=== PATIENT | female | born 1990 | race Two or more races ===

== ENCOUNTER 2023-05-17 00:47 | Inpatient (IN) ==
[2023-05-17 01:22] LABS: BILIRUBIN,URINE NEGATIVE (NEGATIVE); BLOOD/HEMOGLOBIN,URINE 5+ (NEGATIVE); GLUCOSE, URINE NEGATIVE (NEGATIVE); KETONES,URINE NEGATIVE (NEGATIVE); LEUKOCYTE ESTERASE ,URINE 3+ (NEGATIVE); NITRITES,URINE NEGATIVE (NEGATIVE); PROTEIN,URINE 2+ (NEGATIVE); UROBILINOGEN,URINE NORMAL (NORMAL)
[2023-05-17 01:34] LABS: APPEARANCE,URINE MUCOID (CLEAR); COLOR,URINE STRAW (YELLOW)
[2023-05-17 01:35] LABS: BACTERIA,URINE TRACE /HPF (NEGATIVE); SQUAMOUS EPITHELIAL CELL,UR MODERATE /HPF (NEGATIVE); TRANSITIONAL EPI CELLS,URINE FEW /HPF (NEGATIVE)
[2023-05-17 01:36] LABS: AMNISURE ROM TEST THERE IS A RUPTURE (NO RUPTURE)
[2023-05-17] MEDS ORDERED: NS 1,000 ML IV 1,000 ML ONE (01:46)
[2023-05-17] MEDS: NS 1,000 ML IV 1,000 ML IV ONE (01:50)
[2023-05-17 02:12] LABS: BASOPHILS # (AUTO) 0.1 X10^3/uL (0.0-0.1); BASOPHILS % (AUTO) 0.8 % (0.2-1.0); EOSINOPHILS % (AUTO) 0.4 % (0.9-2.9); HEMATOCRIT 34.6 % (36.0-47.0); HEMOGLOBIN 11.8 g/dL (12.0-16.0); LYMPHOCYTES # (AUTO) 2.1 X10^3/uL (1.3-2.9); LYMPHOCYTES % (AUTO) 23.4 % (21.0-51.0); MEAN CORPUSCULAR HEMOGLOBIN 29.7 pg (27.0-34.0); MEAN CORPUSCULAR HGB CONC 34.1 g/dL (33.0-35.0); MEAN CORPUSCULAR VOLUME 87.1 fL (80.0-100.0); MEAN PLATELET VOLUME 10.1 fL (7.4-11.0); MONOCYTES # (AUTO) 0.6 x10^3/uL (0.3-0.8); MONOCYTES % (AUTO) 6.6 % (0.0-13.0); NEUTROPHILS # (AUTO) 6.3 x10^3/uL (2.2-4.8); NEUTROPHILS % (AUTO) 68.8 % (42.0-75.0); PLATELET COUNT 190 X10^3/uL (150.0-450.0); RED BLOOD COUNT 3.97 X10^6/uL (3.5-5.4); RED CELL DISTRIBUTION WIDTH 13.8 % (11.6-16.5); WHITE BLOOD COUNT 9.1 X10^3/uL (3.6-10.0)
[2023-05-17 02:25] LABS: ALANINE AMINOTRANSFERASE 21 Units/L (12-78); ALKALINE PHOSPHATASE 252 Units/L (46-116); ASPARTATE AMINO TRANSFERASE 26 Units/L (15-37); BLOOD UREA NITROGEN 4 mg/dL (7-18); CALCIUM 7.9 mg/dL (8.5-10.1); CARBON DIOXIDE 21.9 mmol/L (21-32); CHLORIDE 108 mmol/L (98-107); COR CA(FOR HYPOALB) 9.5 mg/dL (8.5-10.1); CREATININE 0.41 mg/dL (0.55-1.02); GLUCOSE 95 mg/dL (65-99); POTASSIUM 3.5 mmol/L (3.5-5.1); SODIUM 140 mmol/L (136-145); TOTAL PROTEIN 6.3 g/dL (6.4-8.2); eGFR NON BLACK RACES > 60 (>60)
[2023-05-17] MEDS ORDERED: NUBAIN INJ 200 MG VIAL MULTIDOSE ONE (03:20)
[2023-05-17] MEDS ORDERED: NS 100 ML IV 100 ML ONE (03:20)
[2023-05-17] MEDS: AMPICILLIN VIAL 2 GRAM ONE (03:22)
[2023-05-17] MEDS: NUBAIN INJ 20 MG AMP IVP PRN (03:24)
[2023-05-17] MEDS ORDERED: REGLAN INJ 10 MG VIAL IVP PRN (03:27)
[2023-05-17] MEDS ORDERED: ZOFRAN INJ 4 MG VIAL IVP PRN (03:27)
[2023-05-17] MEDS ORDERED: AMPICILLIN VIAL 2 GRAM 2 G in NS 100 ML IV + SPIKE MINIBAG* 100 ML IV SCH (04:00)
[2023-05-17] MEDS ORDERED: LR 1,000 ML IV 1,000 ML IV SCH (04:00)
[2023-05-17] MEDS ORDERED: PITOCIN ONE (04:22)
[2023-05-17] MEDS: OXYTOCIN 20 UNIT/1,000 ML-NS 20 UNIT/1,000 ML PLAST..BAG IV PRN (04:25)
[2023-05-17] MEDS ORDERED: BETADINE SOLN ONE (04:29)
[2023-05-17] MEDS: PITOCIN IVP ONE (05:30)
[2023-05-17] MEDS ORDERED: DERMOPLAST PAIN RELIEF SPRAY TOP PRN (06:05)
[2023-05-17] MEDS ORDERED: MILK OF MAGNESIA PO PRN (06:05)
[2023-05-17] MEDS ORDERED: MOTRIN TAB 800 MG PO PRN ×2 (06:05→06:08)
[2023-05-17] MEDS ORDERED: AMBIEN PO PRN (06:05)
[2023-05-17] MEDS ORDERED: OXYTOCIN 20 UNIT/1,000 ML-NS 20 UNIT/1,000 ML PLAST..BAG IV SCH (06:15)
[2023-05-17] MEDS ORDERED: AMPICILLIN VIAL 1 GRAM 1 G in NS 50 ML IV + SPIKE MINIBAG* 50 ML IV SCH (08:00)
[2023-05-17] MEDS: PRENATAL PLUS PO SCH (09:28)
[2023-05-18 05:02] LABS: HEMATOCRIT 32.6 % (36.0-47.0); HEMOGLOBIN 10.9 g/dL (12.0-16.0)
[2023-05-18 09:16] VITALS: BP 117/71; PULSE 81; RESP 18; TEMP 97.9; O2SAT 96
== END 2023-05-18 13:05 | disposition home or self-care (01) | DRG 807 ==
LOC: ER 00:56 → LD 02:28 → MED/SURG 07:41
PROVIDERS: ADMIT Obstetrics & Gynecology Obstetrics; ATTEND Obstetrics & Gynecology Obstetrics
DX: Z37.0 Single live birth; Z3A.38 38 weeks gestation of pregnancy; O80 Encounter for full-term uncomplicated delivery